=== PATIENT | male | born 1945 | race Caucasian/White ===

== ENCOUNTER 2022-07-08 10:20 | Emergency (ER) | payer MEDICARE ==
[2022-07-08] MEDS ORDERED: Sodium Chloride 0.9% 1,000 ML IV ONE (10:47)
[2022-07-08] MEDS ORDERED: Magnesium Sulfate (4.06 MEQ/ML) 5 GM/10 ML SDV IV STA (10:55)
[2022-07-08] MEDS ORDERED: Magnesium Sulfate/Water 2 GM in Premix Bag 1 BAG IV ONE (10:59)
[2022-07-08 11:39] LABS: CARBON DIOXIDE,CO2 27.9 mmol/L (21.0-32.0); POTASSIUM,K 3.9 mmol/L (3.5-5.1)
== END 2022-07-08 13:51 | disposition home or self-care (01) ==
LOC: MW.ED 10:20
DX: I48.91 Unspecified atrial fibrillation (principal); Z79.899 Other long term (current) drug therapy
CPT/HCPCS: 36415; 80053; 84439; 84443; 84484; 85025; 93005; 96365; 99285; J3475; J7030

== ENCOUNTER 2022-09-18 17:51 | Emergency (ER) | payer MEDICARE, OTHER ==
[2022-09-18] MEDS ORDERED: Sodium Chloride 0.9% 1,000 ML IV ONE (18:30)
[2022-09-18] MEDS ORDERED: Ondansetron 4 MG/2 ML SDV IVPUSH ONE (18:30)
[2022-09-18 19:05] LABS: CARBON DIOXIDE,CO2 28.1 mmol/L (21.0-32.0); POTASSIUM,K 3.9 mmol/L (3.5-5.1)
== END 2022-09-18 21:44 | disposition home or self-care (01) ==
LOC: MW.ED 17:51
DX: I48.91 Unspecified atrial fibrillation (principal)
CPT/HCPCS: 36415; 80053; 82947; 83690; 84484; 85025; 93005; 96361; 96374; 99285; J2405; J7030

== ENCOUNTER 2025-04-15 19:28 | Emergency (ER) | payer MEDICARE, OTHER ==
[2025-04-15] MEDS: Acetaminophen 500 MG Tab PO ONE (20:21)
== END 2025-04-15 22:05 | disposition home or self-care (01) ==
LOC: MW.ED 19:28
DX: S49.92XA Unspecified injury of left shoulder and upper arm, initial encounter (principal); S20.20XA Contusion of thorax, unspecified, initial encounter; V18.2XXA Unspecified pedal cyclist injured in noncollision transport accident in nontraffic accident, initial encounter
CPT/HCPCS: 71250; 73030; 73060; 74176; 99284; A9270